=== PATIENT | male | born 1990 | race Caucasian/White ===

== ENCOUNTER 2018-01-05 10:45 | Emergency (ER) | payer SELFPAY ==
[2018-01-05] MEDS ORDERED: ONDANSETRON 4 MG/2 ML VIAL IVPUSH ONE (10:51)
--- NOTE | 2018-01-05 10:54 | PDOC ---
Attending Attestation - Resident Resident Name: EduardElliot - ED Attending Attestation I have performed the following: I have examined & evaluated the patient, The case was reviewed & discussed with the resident, I agree w/resident's findings & plan, Exceptions are as noted - HPI HPI: 01/05/18 11:38 Agree with residents HPI - Physicial Exam PE: 01/05/18 11:38 Agree with residents PE - Medical Decision Making Benign abdominal examination labs within normal limits patient feels better after antiemetics and fluids we'll discharge with prescription for Zofran patient will follow-up with his primary care provider Findings, the need for follow-up and strict return instructions discussed with patient.
[2018-01-05] MEDS ORDERED: SODIUM CHLORIDE 0.9% 1000 ML INFUS.BAG IV ONE (10:55)
[2018-01-05 11:00] VITALS: BP 132/86; PULSE 52; TEMP 98; BMI 19.4
[2018-01-05] MEDS ORDERED: FAMOTIDINE 20 MG/50 ML IVPB 20 MG/50 ML MG IVPB ONE ×2 (11:10→11:15)
[2018-01-05 11:13] LABS: URINE APPEARANCE Clear; URINE BILIRUBIN Negative (NEGATIVE); URINE COLOR Amber; URINE GLUCOSE (UA) Negative (NEGATIVE); URINE KETONE Negative (NEGATIVE); URINE LEUK ESTERASE TRACE (NEGATIVE); URINE NITRITE Negative (NEGATIVE); URINE PROTEIN Negative (NEGATIVE); URINE UROBILINOGEN 0.2 (0.2-1.0)
[2018-01-05] MEDS ORDERED: ONDANSETRON 4 MG/2 ML VIAL ONE (11:15)
[2018-01-05 11:19] LABS: BASO % 1.2 % (0-2.0); EOS % 2.1 % (0-4.5); HEMATOCRIT 42.4 % (35.4-49); HEMOGLOBIN 13.8 GM/dl (11.7-16.9); MCH 30.1 pg (25.7-33.7); MCHC 32.6 g/dl (32.0-35.9); MEAN CELL VOLUME 92.5 fl (80-96); MEAN PLT VOLUME 9.2 fl (7.5-11.1); MONO % 6.5 % (3.8-10.2); NEUT % 73.2 % (42.8-82.8); PLATELET COUNT 263 K/MM3 (134-434); RBC 4.58 M/mm3 (4.00-5.60); RDW 13.2 % (11.9-15.9); WHITE BLOOD COUNT 8.7 K/mm3 (4.0-10.8)
--- NOTE | 2018-01-05 11:21 | PDOC ---
History of Present Illness - General Chief Complaint: Nausea/Vomiting Stated Complaint: ABDOMINAL PAIN VOMITED ONCE AFTER EGG SANDWICH Time Seen by Provider: 01/05/18 10:51 History Source: Patient Exam Limitations: No Limitations - History of Present Illness Initial Comments: 01/05/18 11:20 Patient is a 27M with history of anemia (unsure of cause, says it runs in family ), HIV exposure ( recently +, patient currently on Truvada (Emtricitabine/ Tenofovir) and Tivicay (Dolutegravir) here today complaining of diarrhea and vomiting one hour ago that the patient associates with eating an egg sandwich. Patient was recently exposed to HIV and is currently taking prophylaxis. Tested negative 2 months ago and labs done at that time were unremarkable. Patient denies fevers, chills. Denies blood in stool and vomit. Denies dysuria and surgical history. Patient endorses a diffuse abdominal pain that feels like a cramping. Past History - Past Medical History Allergies/Adverse Reactions: Allergies Allergy/AdvReac Type Severity Reaction Status Date / Time No Known Allergies Allergy Unverified 01/05/18 10:47 Home Medications: Ambulatory Orders Dolutegravir Sodium [Tivicay] 10 mg PO DAILY 01/05/18 Emtricitabine/Tenofovir [Truvada -] 1 tab PO DAILY 01/05/18 COPD: No Other medical history: PT IS PRESENTLY TAKING ANTIVIRAL MEDICATION PROPHALACTICALLY - Immunization History Immunization Up to Date: No - Suicide/Smoking/Psychosocial Hx Smoking History: Current every day smoker Have you smoked in the past 12 months: Yes Number of Cigarettes Smoked Daily: 10 Information on smoking cessation initiated: Yes 'Breaking Loose' booklet given: 01/05/18 Hx Alcohol Use: Yes (RARE) Drug/Substance Use Hx: No Substance Use Type: Alcohol Review of Systems - Review of Systems Comments:: 01/05/18 11:24 GENERAL/CONSTITUTIONAL: No fever or chills. No weakness. HEAD, EYES, EARS, NOSE AND THROAT: No change in vision. No sore throat. CARDIOVASCULAR: No chest pain or shortness of breath RESPIRATORY: No cough, wheezing, or hemoptysis. GASTROINTESTINAL: +nausea, vomiting, diarrhea GENITOURINARY: No dysuria, frequency, or change in urination. MUSCULOSKELETAL: No joint or muscle swelling or pain. No neck or back pain. SKIN: No rash NEUROLOGIC: No headache, vertigo, loss of consciousness, or change in strength/ sensation. ENDOCRINE: No increased thirst. No abnormal weight change HEMATOLOGIC/LYMPHATIC: No anemia, easy bleeding, or history of blood clots. ALLERGIC/IMMUNOLOGIC: No hives or skin allergy. *Physical Exam - Vital Signs Last Vital Signs Temp Pulse Resp BP Pulse Ox 98 F 52 L 16 132/86 100 01/05/18 10:47 01/05/18 10:47 01/05/18 10:47 01/05/18 10:47 01/05/18 10:47 - Physical Exam Comments: 01/05/18 11:24 GENERAL: Awake, alert, and fully oriented, in no acute distress HEAD: No signs of trauma, normocephalic, atraumatic EYES: PERRLA, EOMI, sclera anicteric, conjunctiva clear ENT: Auricles normal inspection, hearing grossly normal, nares patent, oropharynx clear without exudates. Moist mucosa NECK: Normal ROM, supple, no lymphadenopathy, JVD, or masses LUNGS: No distress, speaks full sentences, clear to auscultation bilaterally HEART: Regular rate and rhythm, normal S1 and S2, no murmurs, rubs or gallops, peripheral pulses normal and equal bilaterally. ABDOMEN: Soft, nontender, normoactive bowel sounds. No guarding, no rebound. No masses EXTREMITIES: Normal inspection, Normal range of motion, no edema. No clubbing or cyanosis. NEUROLOGICAL: Cranial nerves II through XII grossly intact. Normal speech, normal gait, no focal sensorimotor deficits SKIN: Warm, Dry, normal turgor, no rashes or lesions noted. ED Treatment Course - LABORATORY CBC & Chemistry Diagram: 01/05/18 11:13 01/05/18 11:13 - ADDITIONAL ORDERS Additional order review: Laboratory Results 01/05/18 11:08 Urine Color [place] Urine Appearance Clear Urine pH 6.0 Ur Specific [place] 1.020 Urine Protein Negative Urine Glucose (UA) Negative Urine Ketones Negative Urine Blood Negative Urine Nitrite Negative Urine Bilirubin Negative Urine Urobilinogen 0.2 Ur Leukocyte Esterase Trace H - Medications Given in the ED: ED Medications Discontinued Medications Generic Name Dose Route Start Last Admin Trade Name Freq PRN Reason Stop Dose Admin Sodium Chloride 1,000 ml 01/05/18 10:55 01/05/18 11:14 Normal Saline - IV 01/05/18 10:56 1,000 ml ONCE ONE Administration Medical Decision Making - Medical Decision Making 01/05/18 11:24 Patient is 27M with history of anemia and HIV exposure here today with nausea, vomiting and diarrhea. Vital signs normal and stable. Exam normal. Patient appears well. Will draw labs to evaluate for medication side effects, test for HIV, and treat symptoms. Suspect likely gastroenteritis. Do not suspect appendicitis, cholecystitis or diverticulitis given patient's normal exam and well appearance. 01/05/18 12:38 Laboratory Tests 01/05/18 01/05/18 11:13 11:13 WBC 8.7 Hgb 13.8 Plt Count 263 Sodium 135 L BUN 12 Creatinine 1.0 Total Bilirubin 0.8 AST 25 ALT 19 CBC, CMP normal. Liver enzymes normal. Pending lipase and HIV. Patient reassessed, feeling better. 01/05/18 13:39 HIV/Lipase negative. Patient feels well. Will discharge with return precautions. *DC/Admit/Observation/Transfer Diagnosis at time of Disposition: Vomiting - Discharge Dispostion Disposition: HOME Condition at time of disposition: Good Decision to Admit order: No - Referrals - Patient Instructions Printed Discharge Instructions: DI for Vomiting -- Adult Additional Instructions: Please return if you have any new, worsening or concerning symptoms. Please follow up with your primary care doctor this week. - Post Discharge Activity Forms/Work/School Notes: Back to Work
[2018-01-05 11:33] LABS: ALK PHOS 52 U/L (32-92); ANION GAP 7 MMOL/L (8-16); BILIRUBIN,TOTAL 0.8 mg/dl (0.2-1.0); BLOOD UREA NITROGEN 12 mg/dl (7-18); CALCIUM 9.5 mg/dl (8.4-10.2); CHLORIDE 99 mmol/L (98-107); CO2 29 mmol/L (22-28); GLUCOSE,RANDOM 97 mg/dl (74-106); POTASSIUM 4.4 mmol/L (3.5-5.1); SGOT/AST 25 U/L (10-42); SGPT/ALT 19 U/L (10-40); SODIUM 135 mmol/L (136-145); TOT PROT 7.8 g/dl (6.4-8.3)
[2018-01-05 12:15] LABS: URINE RBC 0-1 /hpf (0-3)
[2018-01-05 12:16] LABS: URINE WBC 0-3 (0-2)
[2018-01-05 12:51] LABS: LIPASE 77 U/L (73-393)
== END 2018-01-05 13:45 | disposition home or self-care (01) ==
LOC: FER 10:45
PROC: 3E033GC Introduction of Other Therapeutic Substance into Peripheral Vein, Percutaneous Approach (ICD-10-PCS; principal; 2018-01-05)
PROC: 3E0337Z Introduction of Electrolytic and Water Balance Substance into Peripheral Vein, Percutaneous Approach (ICD-10-PCS; 2018-01-05)
DX: R11.10 Vomiting, unspecified (principal); Z77.9 Other contact with and (suspected) exposures hazardous to health; F17.210 Nicotine dependence, cigarettes, uncomplicated
CPT/HCPCS: 36415; 80053; 81003; 81015; 83690; 85025; 87389; 99283-25; J7030

== ENCOUNTER 2018-01-26 16:53 | Emergency (ER) | payer SELFPAY ==
[2018-01-26 17:04] VITALS: TEMP 98.3; BMI 20.3
--- NOTE | 2018-01-26 17:05 | PDOC ---
Rapid Medical Evaluation Time Seen by Provider: 01/26/18 17:02 Medical Evaluation: Allergies Allergy/AdvReac Type Severity Reaction Status Date / Time No Known Allergies Allergy Verified 01/26/18 17:02 01/26/18 17:02 I have performed a brief in-person evaluation of the patient The patient presents with a chief complaint of: vomiting since this am with abdominal pain. Reports lower abdominal pain. Pertinent physical exam findings are: NAD even and unlabored breathing + bowel sound, non tender abdomen I have ordered the following: labs iv site The patient will proceed to the ED for further evaluation.
--- NOTE | 2018-01-26 17:27 | PDOC ---
History of Present Illness - General Chief Complaint: Nausea/Vomiting Stated Complaint: NAUSEA/VOMITING Time Seen by Provider: 01/26/18 17:02 History Source: Patient Exam Limitations: No Limitations - History of Present Illness Initial Comments: 01/26/18 17:25 CHIEF COMPLAINT: Vomiting HISTORY OF PRESENT ILLNESS: This is an otherwise healthy 27-year-old male ( takes a ARV prophylactically because partner has HIV) who presents for evaluation of abdominal pain and nausea/vomiting. He reports generalized abdominal pain, nausea, and one episode of vomiting since morning. He denies fevers/chills, constipation/diarrhea, dysuria, or any other symptoms. 5-year- old stepdaughter is sick with a cold. He denies travel. Vital signs on arrival are notable for heart rate of 50. REVIEW OF SYSTEMS: GENERAL/CONSTITUTIONAL: No fever or chills. No weakness. No weight change. HEAD, EYES, EARS, NOSE AND THROAT: No change in vision. No ear pain or discharge. No sore throat. CARDIOVASCULAR: No chest pain or palpitations. RESPIRATORY: No cough, wheezing, or shortness of breath. GASTROINTESTINAL: See HPI. GENITOURINARY: No dysuria, frequency, or change in urination. MUSCULOSKELETAL: No joint or muscle swelling or pain. No neck or back pain. SKIN: No rash or easy bruising. NEUROLOGIC: No headache, vertigo, loss of consciousness, or loss of sensation. PSYCHIATRIC: No depression or anxiety. ENDOCRINE: No increased thirst. No abnormal weight change. HEMATOLOGIC/LYMPHATIC: No anemia, easy bleeding, or history of blood clots. ALLERGIC/IMMUNOLOGIC: No hives or skin allergy. No latex allergy. PHYSICAL EXAM: GENERAL: The patient is awake, alert, and fully oriented, in no acute distress. HEAD: Normal with no signs of trauma. ENT: Pupils equal, round and reactive to light, extraocular movements intact, sclera anicteric, conjunctiva clear. Neck supple. LUNGS: Clear to auscultation bilaterally. Normal excursion. No respiratory distress or use of accessory muscles. CV: RRR, S1/S2, no MRG. Cap refill < 2 sec. ABDOMEN: Soft, non-distended, non-tender even to deep palpation. EXTREMITIES: Normal range of motion, no edema. NEUROLOGICAL: Normal speech, normal gait. CN II-XII grossly intact. PSYCH: Normal mood, normal affect. SKIN: Warm, dry, normal turgor, no rashes or lesions noted. Past History - Past Medical History Allergies/Adverse Reactions: Allergies Allergy/AdvReac Type Severity Reaction Status Date / Time No Known Allergies Allergy Verified 01/26/18 17:02 Home Medications: Ambulatory Orders Dolutegravir Sodium [Tivicay] 10 mg PO DAILY 01/05/18 Emtricitabine/Tenofovir [Truvada -] 1 tab PO DAILY 01/05/18 COPD: No - Immunization History Immunization Up to Date: No - Suicide/Smoking/Psychosocial Hx Smoking History: Current every day smoker Have you smoked in the past 12 months: Yes Number of Cigarettes Smoked Daily: 10 Information on smoking cessation initiated: No 'Breaking Loose' booklet given: 01/05/18 Hx Alcohol Use: Yes (RARE) Drug/Substance Use Hx: No Substance Use Type: Alcohol *Physical Exam - Vital Signs Last Vital Signs Temp Pulse Resp BP Pulse Ox 98.3 F 50 L 16 114/65 99 01/26/18 17:03 01/26/18 17:03 01/26/18 17:03 01/26/18 17:03 01/26/18 17:03 ED Treatment Course - LABORATORY CBC & Chemistry Diagram: 01/26/18 17:27 01/26/18 17:27 Medical Decision Making - Medical Decision Making 01/26/18 17:28 A/P: 27-year-old male with generalized abdominal pain (resolved) and one episode of vomiting. Well-hydrated and well-appearing on exam. -Basic labs ordered in [facility] -Zofran, IV fluids, PO trial 01/26/18 18:40 Labs reviewed and unremarkable. Tolerating PO, feels "way better." Will dc with recommendations for followup; return precautions reviewed. *DC/Admit/Observation/Transfer Diagnosis at time of Disposition: Vomiting Qualifiers: Vomiting type: unspecified Vomiting Intractability: non-intractable Nausea presence: with nausea Qualified Code(s): R11.2 - Nausea with vomiting, unspecified - Discharge Dispostion Disposition: HOME Condition at time of disposition: Stable Decision to Admit order: No - Referrals Referrals: Janak Figueroa MD [Staff Physician] - 2 Days (or your regular primary care doctor ) - Patient Instructions Printed Discharge Instructions: DI for Vomiting -- Adult, [place] Diet Additional Instructions: Rest and stay well-hydrated Eat a bland diet (bananas, rice, apples, plain toast) until you are feeling better Return here for worsening abdominal pain or any other concerning symptoms - Post Discharge Activity
[2018-01-26] MEDS ORDERED: SODIUM CHLORIDE 1,000 ML IV SCH (17:30)
[2018-01-26] MEDS ORDERED: ONDANSETRON 4 MG/2 ML VIAL ONE (17:35)
[2018-01-26] MEDS: ONDANSETRON 4 MG/2 ML VIAL IVPUSH ONE ×2 (17:41)
--- NOTE | 2018-01-26 17:46 | PDOC ---
*Physical Exam - Vital Signs Last Vital Signs Temp Pulse Resp BP Pulse Ox 98.3 F 50 L 16 114/65 99 01/26/18 17:03 01/26/18 17:03 01/26/18 17:03 01/26/18 17:03 01/26/18 17:03 ED Treatment Course - LABORATORY CBC & Chemistry Diagram: 01/26/18 17:27 01/26/18 17:27 - Medications Given in the ED: ED Medications Discontinued Medications Generic Name Dose Route Start Last Admin Trade Name [place] PRN Reason Stop Dose Admin Ondansetron HCl 4 mg 01/26/18 17:24 01/26/18 17:41 Zofran Injection IVPUSH 01/26/18 17:25 Not Given ONCE ONE Medical Decision Making - Medical Decision Making 01/26/18 17:46 Pt seen by Midlevel Provider under my direct supervision Ancillary studies reviewed I agree with plan as outlined by Midlevel Provider *DC/Admit/Observation/Transfer Diagnosis at time of Disposition: Vomiting Qualifiers: Vomiting type: unspecified Vomiting Intractability: non-intractable Nausea presence: with nausea Qualified Code(s): R11.2 - Nausea with vomiting, unspecified - Discharge Dispostion Disposition: HOME Condition at time of disposition: Stable - Referrals Referrals: Janak Figueroa MD [Staff Physician] - 2 Days (or your regular primary care doctor ) - Patient Instructions Printed Discharge Instructions: [place] Diet, DI for Vomiting -- Adult Additional Instructions: Rest and stay well-hydrated Eat a bland diet (bananas, rice, apples, plain toast) until you are feeling better Return here for worsening abdominal pain or any other concerning symptoms - Post Discharge Activity Forms/Work/School Notes: Back to Work
[2018-01-26 18:02] LABS: BASO % 0.9 % (0-2.0); EOS % 6.2 % (0-4.5); HEMATOCRIT 40.3 % (35.4-49); HEMOGLOBIN 13.4 GM/dL (11.7-16.9); LYMPH % 34.1 % (8-40); MCH 30.4 pg (25.7-33.7); MCHC 33.3 g/dl (32.0-35.9); MEAN CELL VOLUME 91.2 fl (80-96); MEAN PLT VOLUME 9.2 fl (7.5-11.1); MONO % 11.3 % (3.8-10.2); NEUT % 47.5 % (42.8-82.8); PLATELET COUNT 230 K/MM3 (134-434); RBC 4.41 M/mm3 (4.00-5.60); RDW 13.9 % (11.9-15.9); WHITE BLOOD COUNT 6.2 K/mm3 (4.0-10.0)
[2018-01-26 18:15] LABS: INR 0.94 (0.83-1.09); PROTHROMBIN TIME (PATIENT) 11.1 SEC (9.7-13.0)
[2018-01-26 18:18] LABS: ACTIVATED PTT 33.1 SECONDS (25.2-36.5)
[2018-01-26 18:29] LABS: ALBUMIN 3.9 g/dl (3.4-5.0); ALK PHOS 69 U/L (45-117); ANION GAP 5 MMOL/L (8-16); BILIRUBIN,TOTAL 0.4 mg/dL (0.2-1); BLOOD UREA NITROGEN 18 mg/dL (7-18); CALCIUM 9.2 mg/dL (8.5-10.1); CHLORIDE 103 mmol/L (98-107); CO2 29 mmol/L (21-32); CREATININE 0.9 mg/dL (0.55-1.3); GLUCOSE,RANDOM 75 mg/dL (74-106); LIPASE 99 U/L (73-393); POTASSIUM 4.5 mmol/L (3.5-5.1); SGOT/AST 26 U/L (15-37); SGPT/ALT 28 U/L (13-61); SODIUM 136 mmol/L (136-145); TOT PROT 7.9 g/dl (6.4-8.2)
[2018-01-26 19:20] VITALS: BP 108/73; PULSE 62
== END 2018-01-26 19:00 | disposition home or self-care (01) ==
LOC: JER 16:53
PROC: 3E0337Z Introduction of Electrolytic and Water Balance Substance into Peripheral Vein, Percutaneous Approach (ICD-10-PCS; principal; 2018-01-26)
DX: R11.2 Nausea with vomiting, unspecified (principal); F17.210 Nicotine dependence, cigarettes, uncomplicated
CPT/HCPCS: 36415; 80053; 83690; 85025; 85610; 85730; 99283-25; J7030

== ENCOUNTER 2018-03-06 10:39 | Emergency (ER) | payer SELFPAY ==
[2018-03-06 10:55] VITALS: BP 125/68; PULSE 77; TEMP 98.8; BMI 19.4
--- NOTE | 2018-03-06 11:47 | PDOC ---
History of Present Illness - General Chief Complaint: Sore Throat Stated Complaint: WEAKNESS Time Seen by Provider: 03/06/18 11:14 History Source: Patient Exam Limitations: No Limitations - History of Present Illness Initial Comments: 03/06/18 11:32 27 yr male with "sore throat and weakness" seen yesterday at [facility] for same. Pt denies fever or chills, was given IVF and felt better. Past History - Past Medical History Allergies/Adverse Reactions: Allergies Allergy/AdvReac Type Severity Reaction Status Date / Time No Known Allergies Allergy Verified 03/06/18 10:44 Home Medications: Ambulatory Orders Dolutegravir Sodium [Tivicay] 10 mg PO DAILY 01/05/18 Emtricitabine/Tenofovir [Truvada -] 1 tab PO DAILY 01/05/18 Asthma: Yes COPD: No - Immunization History Immunization Up to Date: No - Suicide/Smoking/Psychosocial Hx Smoking History: Current every day smoker Have you smoked in the past 12 months: Yes Number of Cigarettes Smoked Daily: 5 Information on smoking cessation initiated: Yes 'Breaking Loose' booklet given: 03/06/18 Hx Alcohol Use: No Drug/Substance Use Hx: No Substance Use Type: Alcohol *Physical Exam - Vital Signs Last Vital Signs Temp Pulse Resp BP Pulse Ox 98.8 F 77 16 125/68 100 03/06/18 10:45 03/06/18 10:45 03/06/18 10:45 03/06/18 10:45 03/06/18 10:45 - Physical Exam General Appearance: Yes: Nourished, Appropriately Dressed, Thin HEENT: positive: EOMI, RYAN, TMs Normal, Pharynx Normal, Other (moist mucous membranes) Neck: positive: Supple. negative: Tender Respiratory/Chest: positive: Lungs Clear, Normal Breath Sounds Cardiovascular: positive: Regular Rhythm, Regular Rate Gastrointestinal/Abdominal: positive: Normal Bowel Sounds, Soft Musculoskeletal: positive: Normal Inspection Extremity: positive: Normal Capillary Refill, Normal Inspection, Normal Range of Motion Integumentary: positive: Normal Color, Dry, Warm Neurologic: positive: Fully Oriented, Alert, Normal Mood/Affect, Normal Response , Motor Strength 5/5 Medical Decision Making - Medical Decision Making 03/06/18 11:54 cc: sore throat , weakness had negative workup yesterday at [facility], pt has blood tests, HIV test was negative, labs were all normal pt is drinking gatorade no diarrhea or vomit will refer to PMD *DC/Admit/Observation/Transfer Diagnosis at time of Disposition: Pharyngitis Qualifiers: Pharyngitis/tonsillitis etiology: unspecified etiology Qualified Code(s): J02.9 - Acute pharyngitis, unspecified - Discharge Dispostion Disposition: HOME Condition at time of disposition: Good - Referrals Referrals: Janak Figueroa MD [Staff Physician] - - Patient Instructions Additional Instructions: get pleanty of rest take a multivitamin daily (any over the counter multivitamin) drink pleanty of fluids follow with the doctor listed below for follow up primary care return if worse - Post Discharge Activity Forms/Work/School Notes: Back to Work
== END 2018-03-06 12:05 | disposition home or self-care (01) ==
LOC: JERFT 10:39 → JER 10:39 → JERFT 12:05
DX: J02.9 Acute pharyngitis, unspecified (principal)
CPT/HCPCS: 87070; 87186; 87430; 99281-25

== ENCOUNTER 2018-05-02 10:58 | Emergency (ER) | payer SELFPAY ==
[2018-05-02 11:06] VITALS: BP 128/78; PULSE 52; TEMP 97.4; BMI 20.3
[2018-05-02] MEDS ORDERED: ALBUTEROL SO4 2.5/IPRATROPIUM 0.5 INH SOL 3 ML VIAL.NEB. NEB ONE (11:34)
--- NOTE | 2018-05-02 11:36 | PDOC ---
History of Present Illness - General Chief Complaint: Asthma Stated Complaint: SOB, WEAKNESS Time Seen by Provider: 05/02/18 11:10 - History of Present Illness Initial Comments: 05/02/18 11:34 27-year-old male with past medical history significant for asthma presents for evaluation of asthma exacerbation 2 days. He states he was seen at another hospital given a prescription for prednisone but his asthma still flares up over the last 2 days. He also reports a fever subjectively. He is not currently taking antibiotics. Past History - Past Medical History Allergies/Adverse Reactions: Allergies Allergy/AdvReac Type Severity Reaction Status Date / Time No Known Allergies Allergy Verified 03/06/18 10:44 Home Medications: Ambulatory Orders Dolutegravir Sodium [Tivicay] 10 mg PO DAILY 01/05/18 Emtricitabine/Tenofovir [Truvada -] 1 tab PO DAILY 01/05/18 Asthma: Yes COPD: No - Immunization History Immunization Up to Date: No - Suicide/Smoking/Psychosocial Hx Smoking History: Never smoked Have you smoked in the past 12 months: Yes Number of Cigarettes Smoked Daily: 10 'Breaking Loose' booklet given: 01/05/18 Hx Alcohol Use: No Drug/Substance Use Hx: No Substance Use Type: Alcohol Review of Systems - Review of Systems Constitutional: Yes: Fever Respiratory: Yes: Cough, Shortness of Breath, Wheezing *Physical Exam - Vital Signs Last Vital Signs Temp Pulse Resp BP Pulse Ox 97.4 F L 52 L 17 128/78 100 05/02/18 11:03 05/02/18 11:03 05/02/18 11:03 05/02/18 11:03 05/02/18 11:03 - Physical Exam Comments: 05/02/18 11:34 HEAD: NC/AT EYES: Conjuntiva clear Ears: Canals and TM's normal NOSE: No d/c THROAT: Moist mucous membrances, oral pharanx clear, uvula midline NECK: Supple without adenopathy CARDIAC: S1 S2 LUNGS: Clear but decreased bibasilar breath sounds ABDOMEN: Soft NT ND MS: Full ROM in all joints without edema NEUROLOGIC: No gross sensory or motor deficits, NVID SKIN: Normal color and temperature no lesions or rashes Moderate Sedation - Procedure Monitoring Vital Signs: Procedure Monitoring Vital Signs Temperature 97.4 F L 05/02/18 11:03 Pulse Rate 52 L 05/02/18 11:03 Respiratory Rate 17 05/02/18 11:03 Blood Pressure 128/78 05/02/18 11:03 O2 Sat by Pulse Oximetry (%) 100 05/02/18 11:03 ED Treatment Course - RADIOLOGY Radiology Studies Ordered: Category Date Time Status CHEST PA & LAT [RAD] Stat Radiology 05/02/18 11:29 Ordered Medical Decision Making - Medical Decision Making 05/02/18 11:40 CXR, NAD 05/02/18 12:22 full equal clear breath sounds after 2nd duo heidi, wants work note x2 days *DC/Admit/Observation/Transfer Diagnosis at time of Disposition: Asthma exacerbation - Discharge Dispostion Disposition: HOME Condition at time of disposition: Improved Decision to Admit order: No - Referrals Referrals: Vinicio Alatorre MD [Staff Physician] - - Patient Instructions Printed Discharge Instructions: Asthma -- Adult Additional Instructions: Her serum should symptoms worsen or go unresolved follow-up with pulmonology in 2-3 days for further evaluation and treatment options. Continue with her usual meds as scheduled. - Post Discharge Activity Forms/Work/School Notes: Back to Work
[2018-05-02] MEDS: ALBUTEROL SO4 2.5/IPRATROPIUM 0.5 INH SOL 3 ML VIAL.NEB. NEB SCH ×2 (11:37→12:10)
== END 2018-05-02 12:28 | disposition home or self-care (01) ==
LOC: JERFT 10:58
PROC: 3E0F7GC Introduction of Other Therapeutic Substance into Respiratory Tract, Via Natural or Artificial Opening (ICD-10-PCS; principal; 2018-05-02)
DX: J45.901 Unspecified asthma with (acute) exacerbation (principal)
CPT/HCPCS: 71046-TC-FY; 99281-25